=== PATIENT | female | born 1980 | race Caucasian/White ===

== ENCOUNTER 2023-04-02 08:23 | Day surgery (SDC) | payer BC, SELFPAY ==
[2023-04-02 11:03] LABS: #Basophils 0.1 10x3/uL (0.0-0.2); #Eosinphils 0.1 10x3/uL (0.0-0.5); #Monocytes 0.5 10x3/uL (0.0-1.1); #Neutrophils 3.1 10x3/uL (1.5-8.4); %Basophils 1.2 % (0.0-2.0); %Eosinophils 1.8 % (0.0-6.0); %Lymphocytes 25.7 % (18.0-47.0); %Monocytes 10.2 % (0.0-10.0); %Neutrophils 60.9 % (40.0-75.0); Hematocrit 35.8 % (34.9-44.5); Hemoglobin 12.5 g/dL (12.0-15.5); Mean Corpuscular HGB CONC 34.9 g/dL (32.0-36.0); Mean Corpuscular Hemoglobin 31.2 pg (27.0-33.0); Mean Corpuscular Volume 89.3 fl (81.6-98.3); Mean Platelet Volume 10.9 fl (7.4-10.4); Platelet Count 197 10x3/uL (150-450); RBC Distribution Width 12.5 % (11.5-14.5); Red Blood Cell (RBC) Count 4.01 10x6/uL (3.90-5.03); White Blood Cell (WBC) Count 5.1 10x3/uL (3.5-10.5)
[2023-04-02] MEDS ORDERED: Lactated Ringer's 1,000 ML IV SCH (13:15)
[2023-04-02] MEDS ORDERED: CEFAZOLIN 1 GM VIAL ONE (14:11)
[2023-04-02] MEDS ORDERED: PHENYLEPHRINE-NS 100 MCG/ML 10 ML SYRINGE ONE (14:28)
[2023-04-02] MEDS ORDERED: Methylergonovine 0.2 MG/ML VIAL ONE (14:28)
[2023-04-02] MEDS ORDERED: HYDROcodone/Acetaminophen 7.5/325 mg Tablet PO PRN (14:43)
[2023-04-02] MEDS ORDERED: Ondansetron PF 4 MG/2 ML Vial IM PRN (14:45)
[2023-04-02] MEDS ORDERED: Ibuprofen 600 MG TAB PO PRN (14:45)
[2023-04-02] MEDS ORDERED: HYDROcodone/Acetaminophen 5/325 mg Tablet ONE (15:53)
== END 2023-04-02 16:25 | disposition home or self-care (01) ==
LOC: CSHERS 08:23 → CSHSDC 13:52
PROVIDERS: ATTEND Obstetrics & Gynecology
PROC: 10D17ZZ Extraction of Products of Conception, Retained, Via Natural or Artificial Opening (ICD-10-PCS; principal; 2023-04-02)
DX: O02.1 Missed abortion (principal); Z98.890 Other specified postprocedural states
CPT/HCPCS: 36415; 76856; 84702; 85025; 86850; 86900; 86901; 88305; 90384; 96372; J0690; J2210

== ENCOUNTER 2025-01-17 15:00 | Outpatient (CLI) | payer OTHER | END 2025-01-17 15:01 | disposition home or self-care (01) | LOC: CSHMAMMO 15:00 | PROVIDERS: ATTEND Obstetrics & Gynecology | DX: Z12.31 Encounter for screening mammogram for malignant neoplasm of breast (principal) | CPT/HCPCS: 77063; 77067 ==